=== PATIENT | male | born 1955 | race Hispanic/Latino ===

== ENCOUNTER 2018-10-16 08:58 | Emergency (ER) | payer OTHER ==
[2018-10-16 08:58] VITALS: BMI 27.1
[2018-10-16 09:12] VITALS: BP 128/84; PULSE 66; TEMP 97.7; O2SAT 96
[2018-10-16 09:24] VITALS: RESP 18
--- NOTE | 2018-10-16 09:44 | C.PDOC ---
History Of Present Illness 63 y/o male pt presents to the ER c/o left elbow pain. Pt had a contusion 1 hour [employer]. Pt reports he was moving a pt when he struck his left elbow on a metal fence. Pt denies weakness and paresthesia on his left hand. Time Seen by Provider: 10/16/18 09:21 Chief Complaint (Nursing): Upper Extremity Problem/Injury History Per: Patient History/Exam Limitations: no limitations Onset/Duration Of Symptoms: Hrs (1) Current Symptoms Are (Timing): Still Present Past Medical History Reviewed: Historical Data, Nursing Documentation, Vital Signs Vital Signs: Last Vital Signs Temp 97.7 F 10/16/18 09:18 Pulse 66 10/16/18 09:18 Resp 18 10/16/18 09:18 BP 128/84 10/16/18 09:18 Pulse Ox 96 10/16/18 09:18 - Medical History PMH: Arthritis (knees, wrsit), Depression, Kidney Stones, Post Traumatic Stress Disorder Surgical History: Endoscopy - [facility] Procedures EXCIS KNEE SEMILUN CARTL (06/09/15) Family History: States: Unknown Family Hx - Social History Hx Tobacco Use: No Hx Alcohol Use: Yes Hx Substance Use: No - Immunization History Hx Tetanus Toxoid Vaccination: Yes (SEP 2015) Hx Influenza Vaccination: Yes (2017) Hx Pneumococcal Vaccination: Yes (2014) Review Of Systems Except As Marked, All Systems Reviewed And Found Negative. Neurological: Positive for: Other (left elbow pain; no paresthesia on left hand ). Negative for: Weakness (on left hand) Physical Exam - Physical Exam Appears: Well, Non-toxic, No Acute Distress Skin: Warm, Dry Head: Normacephalic Eye(s): bilateral: Normal Inspection, EOMI Extremity: Normal ROM (FROM of left elbow; normal function ), No Deformity (left elbow ), No Swelling (left elbow ), Other (minor contusion and abrasion of left elbow) Pulses: Left Radial: Normal Neurological/Psych: Oriented x3, Normal Speech, Normal Cognition, Normal Motor, Normal Sensation ED Course And Treatment O2 Sat by Pulse Oximetry: 96 (RA) Pulse Ox Interpretation: Normal - Other Rad L elbow X-Ray: Interpreted by Me (neg) Medical Decision Making Medical Decision Making: Plans: -- Ibuprofen -- Left elbow XR minor L elbow contusion no fx/disloc Disposition Doctor Will See Patient In The: Office Counseled Patient/Family Regarding: Studies Performed, Diagnosis - Disposition Referrals: [facility] [Outside] [employer] [facility] [place] [Outside] [facility] [Outside] [facility] [Outside] Disposition: HOME/ ROUTINE Disposition Time: 09:44 Condition: GOOD Additional Instructions: x ray L elbow neg ice pack 1/2 hour per hour motrin/advil 400-600 mg every 6 hours as needed outpatient follow-up as needed. Instructions: Contusion (DC) Forms: [employer] ([place]) - Clinical Impression Clinical Impression: Contusion of elbow, left - Scribe Statement The provider has reviewed the documentation as recorded by the Scribe Wilks Do Provider Attestation: All medical record entries made by the Scribe were at my direction and personally dictated by me. I have reviewed the chart and agree that the record accurately reflects my personal performance of the history, physical exam, medical decision making, and the department course for this patient. I have also personally directed, reviewed, and agree with the discharge instructions and disposition.
--- NOTE | 2018-10-16 11:01 | RAD ---
PROCEDURE: Radiographs of the left elbow. HISTORY: contusion/fall to olecranon COMPARISON: No prior. FINDINGS: BONES: No acute displaced fracture. JOINTS: No dislocation. SOFT TISSUES: Unremarkable. No evidence of radiopaque foreign body. JOINT EFFUSION: No significant joint effusion. OTHER FINDINGS: None IMPRESSION: No acute displaced fracture, dislocation, or significant joint effusion identified. If symptoms persist, or if there is continued clinical concern, x-ray follow-up in 7-10 days should be considered.
== END 2018-10-16 09:48 | disposition home or self-care (01) ==
LOC: C.ER 08:58
DX: S50.02XA Contusion of left elbow, initial encounter (principal); W22.09XA Striking against other stationary object, initial encounter; Y92.89 Other specified places as the place of occurrence of the external cause; Y99.0 Civilian activity done for income or pay